=== PATIENT | male | born 1995 | race Caucasian/White ===

== ENCOUNTER 2020-02-04 09:57 | Emergency (ER) | payer MEDICAID ==
[~2020-02-04] VITALS: Ht 175.3 cm; Wt 78.9 kg
[2020-02-04 10:10] VITALS: BP 122/81
--- NOTE | 2020-02-04 10:10 | NUR ---
ED Nurse Note: Pt walked in from home c/o sore throat, headache, nasal congestion with weakness since yesterday. Respirations even and unlabored on room air. Heart rate elevated @ 110. All other vitals stable as documented.
--- NOTE | 2020-02-04 10:23 | Emergency Room Report ---
History of Present Illness General Chief Complaint: Sore Throat Source: Patient Present Illness HPI 25-year-old male presents with cough, congestion, fever/chills/body aches x1 day came on suddenly patient reports that other [facility] at the [facility] are sick as well patient denies any aggravating leaving factors severity is mild, constant patient feels a little weak patient presents for evaluation Allergies: Coded Allergies: No Known Allergies (Unverified , 02/04/20) Patient History Past Medical History: see triage record Reviewed Nursing Documentation: PMH: Agreed; PSxH: Agreed Nursing Documentation-PMH Past Medical History: No History, Except For History Of Psychiatric Problem: Yes - substance abuse in rehab Review of Systems All Other Systems: negative except mentioned in HPI Physical Exam Vital Signs Date Time Temp Pulse Resp B/P (MAP) Pulse Ox O2 Delivery O2 Flow Rate FiO2 02/04/20 10:05 98.2 117 20 122/81 (95) 95 Room Air Sp02 EP Interpretation: reviewed, normal General Appearance: well appearing, no apparent distress, alert Head: normocephalic, atraumatic Eyes: bilateral eye PERRL, bilateral eye EOMI ENT: uvula midline, moist mucus membranes, nasal congestion Neck: supple, thyroid normal, supple/symm/no masses Respiratory: lungs clear, no respiratory distress, no retraction, no accessory muscle use Cardiovascular #1: normal peripheral pulses, no edema, no gallop, no murmur, tachycardia Gastrointestinal: non tender, soft, no guarding, no rebound Musculoskeletal: normal inspection Neurologic: alert, oriented x3 Psychiatric: mood/affect normal Skin: no rash, warm/dry Medical Decision Making Diagnostic Impression: Primary Impression: Upper respiratory infection Qualified Codes: J06.9 - Acute upper respiratory infection, unspecified ER Course 25-year-old male presents with upper respiratory infection differential diagnosis includes influenza, pneumonia Patient given fluids by mouth as well as medications Patient felt better disposition home with return precautions follow-up with PCP Last Vital Signs Date Time Temp Pulse Resp B/P (MAP) Pulse Ox O2 Delivery O2 Flow Rate FiO2 02/04/20 10:05 98.2 117 20 122/81 (95) 95 Room Air Disposition: HOME, SELF-CARE Condition: Stable Scripts Cetirizine Hcl* (ZYRTEC*) 10 Mg Tablet 10 MG ORAL DAILY PRN for congestion, #30 TAB 0 Refills Prov: Nabeel Hightower MD 02/04/20 Referrals: [facility]. [facility] Patient Instructions: Upper Respiratory Infection, Adult, [id number] Additional Instructions: The patient was provided with discharge instructions, notified to follow-up with a primary care doctor and or specialist in the next 24-48 hours, and to return to the ED if they have worsening of their symptoms. Please note that this report is being documented using [employer] technology. This can lead to erroneous entry secondary to incorrect interpretation by the dictating instrument. Nabeel Hightower MD Feb 04, 2020 10:23
[2020-02-04] MEDS ORDERED: ZYRTEC10 MG ORAL (10:25)
[2020-02-04] MEDS ORDERED: Acetaminophen 500mg (ES) tab ORAL ONE (10:30)
[2020-02-04 11:00] VITALS: BP 128/84
--- NOTE | 2020-02-04 11:00 | NUR ---
ER DISCHARGE NOTE: Patient is cleared to be discharged per ERMD, pt is aox4, on room air, with stable vital signs. pt was given dc and prescription instructions, pt was able to verbalize understanding, pt id band removed. pt is able to ambulate with steady gait. pt took all belongings.
== END 2020-02-04 11:00 | disposition home or self-care (01) ==
LOC: EMR 10:37
DX: J06.9 Acute upper respiratory infection, unspecified (principal)
CPT/HCPCS: J8540; Z7502; 99282